=== PATIENT | male | born 1985 | race Caucasian/White ===

== ENCOUNTER 2022-12-31 12:40 | Outpatient (CLI) | payer BC, SELFPAY | END 2022-12-31 12:41 | disposition home or self-care (01) | PROVIDERS: Visit Provider Physician Assistant Medical | DX: F32.A Depression, unspecified (principal); R53.83 Other fatigue | CPT/HCPCS: 80053; 80061; 82306; 84443 ==

== ENCOUNTER 2023-02-18 03:51 | Emergency (ER) | payer BC, SELFPAY ==
[2023-02-18 03:55] VITALS: BP 120/74; PULSE 67; RESP 16; TEMP 36.3; O2SAT 97
[2023-02-18] MEDS: ERYTHROMYCIN 1 GM TUBE 1 APPLIC EYE-BOTH (04:51)
[2023-02-18] MEDS: TETRACAINE 0.5% OPHTH 2 DROP EYE-BOTH (04:51)
--- NOTE | 2023-02-18 04:55 | ED.EYEPROB ---
HPI - Eye Problem General Chief complaint: Eye Problems Stated complaint: eye pain Time Seen by Provider: 02/18/23 04:06 Source: patient and family Mode of arrival: ambulatory Limitations: no limitations History of Present Illness HPI Narrative: 37-year-old male reports increased eye pain for the last hour, waking him from sleep. 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 He has had eye irritation ever since was initially worse on the right but now is also on the left side. Does not were contacts. No headache. He can still see out of the eyes but is sensitive to light. Feels a sand like sensation on the eyelids. Some eye watering but no heavy drainage. Has not tried any Tylenol or ibuprofen to help with his symptoms. Has had this happen in the past and symptoms resolved with no further treatment. No history of glaucoma or other significant eye issues, no prior eye surgeries. Normal visual acuity at baseline. States that his past medical history is benign, denies long-term health problems but records indicate that he takes fluoxetine. Denies intoxication. ROS is notable for the eye symptoms as above, denies other generalized, HEENT, skin or neurological changes. MD chief complaint: eye pain and eye redness Related Data Previous Rx's Medication Instructions Recorded fluoxetine 10 mg capsule 10 mg PO QDAY #7 caps 12/31/22 fluoxetine 20 mg capsule 20 mg PO QDAY #60 caps 12/31/22 Allergies Allergy/AdvReac Type Severity Reaction Status Date / Time Penicillins Allergy Verified 01/07/23 14:54 PFSH PFS Medical History (Updated 02/18/23 @ 04:49 by Leann Horne MD) Urinary frequency ?R35.0 - Frequency of micturition (ICD-10) Strep pharyngitis ?J02.0 - Streptococcal pharyngitis (ICD-10) Family History (Updated 01/07/23 @ 14:57 by Ayanna De Los Santos ~ PSR) Maternal Grandmother Colon cancer Other Diabetes Myocardial infarction Stroke Social History (Updated 01/07/23 @ 14:56 by Ayanna De Los Santos ~ PSR) Narrative: Former smoker, Rarely consumes alcohol, Does not use illicit drugs Smoking Status: Never smoker Non-prescribed substance use: denies use Little interest or pleasure in doing things: more than half the days Feeling down, depressed, or hopeless: nearly every day Exam Const: Vital Signs, click to edit/add: Vital Signs - 24 hr 02/18/23 03:55 Temperature 97.4 F L Pulse Rate [Left P ulse Oximeter] 67 Respiratory Rate 16 Blood Pressure [Ri ght Upper Arm] 120/74 Pulse Oximetry 97 Oxygen Delivery Me thod Room Air Documenting provider has reviewed patient's vital signs: yes Common normals: no apparent distress and alert General appearance: cooperative and well kempt Orientation/consciousness: Yes awake HENMT: Common normals: normocephalic and head/scalp atraumatic Head and scalp: normocephalic and atraumatic Face and sinus: normal facial exam Mouth: oral and palatal mucosa normal Eye: Other: Pupils equal round, reactive to light. Conjunctivae are injected bilaterally with no abnormal drainage. No obvious foreign body seen on initial exam. Both upper and lower lids are very mildly swollen bilaterally but equal. Normal lashes. No signs of bruising or skin injury to the lids. Neck & C-Spine: General: normal visual inspection Resp: Common normals: normal respiratory effort Effort & inspection: able to speak in complete sentences Neuro: Sensorium/orientation: awake and alert Speech: speech normal Other: Grossly normal visual acuity, normal visual tracking. Can work the chair remote with no difficulty. Psych: Appearance: well kempt Attitude: engaged Course Course ED Course: Mild conjunctival irritation evident. Recommended fluorescein exam to look for foreign body based on gritty sensation. Unlikely since his symptoms are bilateral but this will also help identify any deeper corneal injuries that may have occurred from the welding arc. Procedure: Fluorescein staining. Two drops of tetracaine were placed into each eye and allowed to penetrate for 60 seconds. Fluorescein staining was then performed. Each eye shows no evidence of foreign body, corneal abrasion or injury. Eyes were then copiously irrigated with sterile saline flush to remove fluorescent and rinse any potential foreign body. One additional drop of tetracaine was then inserted to each of the eyes with good pain relief. Visual acuity normal following procedure. Erythromycin ointment placed in each eye for comfort as lubricating ointment happens to be unavailable. Patient counseled on alarm symptoms and typical course of healing for mild conjunctival irritation. If symptoms have not been markedly improving after 24 hours, he should seek re-evaluation from an eye doctor or in an ED that has ophthalmology capabilities. This was clearly discussed. In the interim, he should use the lubricating erythromycin ointment every 4 hours while awake, at least 3 times daily for the next 48 hours. Tylenol and ibuprofen for pain control as needed. No driving for today, may resume tomorrow. He verbalized understanding and agreement and has no further questions. Vital Signs Vital signs: Initial Vital Signs Temperature 97.4 F L 02/18/23 03:55 Temperature Source Temporal Artery Scan 02/18/23 03:55 Pulse Rate 67 02/18/23 03:55 Respiratory Rate 16 02/18/23 03:55 Blood Pressure 120/74 02/18/23 03:55 Blood Pressure Mean 89 02/18/23 03:55 Blood Pressure Position Sitting 02/18/23 03:55 Pulse Oximetry 97 02/18/23 03:55 Oxygen Delivery Method Room Air 02/18/23 03:55 Vital Signs Temperature 97.4 F L 02/18/23 03:55 Pulse Rate 67 02/18/23 03:55 Respiratory Rate 16 02/18/23 03:55 Blood Pressure 120/74 02/18/23 03:55 Pulse Oximetry 97 02/18/23 03:55 Oxygen Delivery Method Room Air 02/18/23 03:55 Temperature 97.4 F L 02/18/23 03:55 Pulse Rate 67 02/18/23 03:55 Respiratory Rate 16 02/18/23 03:55 Blood Pressure 120/74 02/18/23 03:55 Pulse Oximetry 97 02/18/23 03:55 Oxygen Delivery Method Room Air 02/18/23 03:55 Medications Administered Medications: Generic Name Dose Route Start Last Admin Trade Name Freq PRN Reason Stop Dose Admin Erythromycin 1 applic 02/18/23 04:49 02/18/23 04:51 Erythromycin 1 Gm Tube EYE-BOTH 02/18/23 04:50 1 applic ONCE ONE Administration Tetracaine HCl 2 drop 02/18/23 04:49 02/18/23 04:51 Tetracaine 0.5% Ophth EYE-BOTH 02/18/23 04:50 2 drop ONCE ONE Administration Discharge Plan Discharge Clinical Impression: Corneal irritation of both eyes Patient Disposition: Home w/ Parent or Adult Condition: Improved Instructions: Corneal Abrasion (DC) Additional Instructions: As we discussed, you have some mild irritation to the outer layer of the eyeball but no signs of deep injury or infection. There are no signs of foreign body either, this is all good news. We applied numbing drops to help with the pain and I have started you on ointment as well. Apply the ointment 3 times daily minimum for the next 48 hours but ideally every 4 hours while you are awake. You may use the numbing drops 2 drops every 4 hours if the pain is very bothersome. I recommend no driving today, very light duty. You will likely have some mild headache and continued burning. You should not have any severe vision loss or other unusual neurological changes. Things should improve markedly within the next 24-48 hours. If things are not improving markedly, please seek re-evaluation as we discussed in a facility that has ophthalmology care. Watering and sticky drainage can be common. It is okay to use Tylenol 1000 mg every 6 hours and or ibuprofen 600 mg every 6 hours for pain. This will not delay or change or healing. Activity Level: Activity as Tolerated Discharge Diet: Regular Prescriptions: No Action fluoxetine 10 mg capsule 10 mg PO QDAY Qty: 7 0RF Rx Instructions: 1 po daily for 1 week then increase to 20mg fluoxetine 20 mg capsule 20 mg PO QDAY Qty: 60 0RF Follow Up/Referrals: Provider,Not a Local [Primary Care Provider] - Stand Alone Forms: [facility] Info Instructions
== END 2023-02-18 04:58 | disposition home or self-care (01) ==
PROVIDERS: Emergency Provider Family Medicine
DX: S05.02XA Injury of conjunctiva and corneal abrasion without foreign body, left eye, initial encounter (principal); S05.01XA Injury of conjunctiva and corneal abrasion without foreign body, right eye, initial encounter; W89.0XXA Exposure to welding light (arc), initial encounter
CPT/HCPCS: 99283; A9270